=== PATIENT | female | born 1945 | race Caucasian/White ===

== ENCOUNTER 2021-01-03 10:44 | Emergency (ER) | payer OTHER ==
[2021-01-03 11:08] VITALS: TEMP 98; BMI 38.7
[2021-01-03] MEDS ORDERED: LACTULOSE 20 GM/30 ML UDC (FOR ORAL USE ONLY) PO ONE (12:01)
[2021-01-03] MEDS ORDERED: SODIUM PHOSPHATE/NA BIPHOS 133 ML ENEMA PR ONE (12:01)
[2021-01-03] MEDS ORDERED: POLYETHYLENE GLYCOL 3350 119 GM BTL PO ONE (12:01)
[2021-01-03 15:08] VITALS: BP 117/74; PULSE 63
== END 2021-01-03 15:08 | disposition home or self-care (01) ==
LOC: JER 10:44
DX: R15.9 Full incontinence of feces (principal)
CPT/HCPCS: 74019-TC-FY; 99283-25